=== PATIENT | female | born 1965 | race Caucasian/White ===

== ENCOUNTER 2018-03-27 15:31 | Outpatient (REF) | payer MEDICARE, MEDICAID, SELFPAY ==
[2018-03-27 22:55] LABS: ALT 46 U/L (12-78); AST 24 U/L (15-37); Albumin 4.3 g/dL (3.4-5.0); Alkaline Phosphatase 103 U/L (46-116); Anion Gap 11.2 mmol/L (3-11); BUN 32 mg/dL (7-18); Bilirubin, Total 0.3 mg/dL (0.2-1.0); CO2 24.8 mmol/L (21.0-32.0); CREATININE 1.45 mg/dL (0.55-1.02); Calcium 9.9 mg/dL (8.5-10.1); Chloride 105 mmol/L (98-107); Estimated GFR 38.07 (mL/min/1.73m2); Glucose 109 mg/dL (70-100); Potassium 5.4 mmol/L (3.5-5.1); Sodium 141 mmol/L (136-145); Total Protein 7.8 g/dL (6.4-8.2); Vitamin B12 334 pg/mL (193-986)
== END 2018-03-27 15:32 ==
LOC: NCHCN 15:31
PROVIDERS: Nurse Practitioner Family; PCP Internal Medicine; Visit Provider Internal Medicine
DX: F41.1 Generalized anxiety disorder (principal); E66.9 Obesity, unspecified
CPT/HCPCS: 80053; 85027; 82607; 84443

== ENCOUNTER 2018-08-30 13:24 | Outpatient (REF) | payer MEDICARE, MEDICAID, SELFPAY ==
[2018-08-30 20:58] LABS: Anion Gap 12.8 mmol/L (3-11); BUN 32 mg/dL (7-18); CO2 23.2 mmol/L (21.0-32.0); CREATININE 1.85 mg/dL (0.55-1.02); Calcium 9.7 mg/dL (8.5-10.1); Chloride 102 mmol/L (98-107); Estimated GFR 28.74 (mL/min/1.73m2); Glucose 140 mg/dL (70-100); Potassium 4.9 mmol/L (3.5-5.1); Sodium 138 mmol/L (136-145)
[2018-08-30 21:43] LABS: Hemoglobin A1C 6.5 % (4.5-6.2)
== END 2018-08-30 13:25 ==
LOC: NCHCN 13:24
PROVIDERS: PCP Internal Medicine; Visit Provider Family Medicine
DX: R73.09 Other abnormal glucose (principal); I10 Essential (primary) hypertension; N18.9 Chronic kidney disease, unspecified
CPT/HCPCS: 80048; 83036

== ENCOUNTER 2018-10-18 21:08 | Outpatient (REF) | payer MEDICARE, MEDICAID, SELFPAY ==
[2018-10-18 22:41] LABS: Albumin 4.2 g/dL (3.4-5.0); Anion Gap 13.4 mmol/L (3-11); BUN 14 mg/dL (7-18); CO2 23.6 mmol/L (21.0-32.0); CREATININE 1.32 mg/dL (0.55-1.02); Calcium 9.4 mg/dL (8.5-10.1); Chloride 105 mmol/L (98-107); Estimated GFR 42.43 (mL/min/1.73m2); Glucose 111 mg/dL (70-100); Potassium 4.2 mmol/L (3.5-5.1); Sodium 142 mmol/L (136-145)
== END 2018-10-18 21:09 ==
LOC: LBN 21:08
PROVIDERS: PCP Internal Medicine; Visit Provider Internal Medicine Nephrology
DX: I10 Essential (primary) hypertension (principal); N18.4 Chronic kidney disease, stage 4 (severe)
CPT/HCPCS: 80069

== ENCOUNTER 2019-03-18 11:58 | Outpatient (REF) | payer MEDICARE, MEDICAID, SELFPAY ==
[2019-03-18 21:13] LABS: Calculated LDL 89 mg/dL; Cholesterol 157 mg/dL (<200); HDL Cholesterol 26 mg/dL (40-60); Triglyceride 213 mg/dL (<150)
== END 2019-03-18 11:59 ==
LOC: NCHCN 11:58
PROVIDERS: PCP Internal Medicine; Visit Provider Family Medicine
DX: E78.5 Hyperlipidemia, unspecified (principal)
CPT/HCPCS: 80061

== ENCOUNTER 2019-10-14 14:48 | Outpatient (REF) | payer MEDICARE, MEDICAID, SELFPAY ==
[2019-10-14 20:24] LABS: ALT 62 U/L (14-59); AST 39 U/L (15-37); Albumin 3.9 g/dL (3.4-5.0); Alkaline Phosphatase 101 U/L (46-116); Anion Gap 11.5 mmol/L (3-11); BUN 25 mg/dL (7-18); Bilirubin, Total 0.3 mg/dL (0.2-1.0); CO2 23.5 mmol/L (21.0-32.0); Calcium 9.7 mg/dL (8.5-10.1); Chloride 106 mmol/L (98-107); Estimated GFR 31.56 (mL/min/1.73m2); Glucose 139 mg/dL (74-106); Potassium 4.8 mmol/L (3.5-5.1); Sodium 141 mmol/L (136-145)
[2019-10-14 20:25] LABS: Abs Immature Grans 0.16 k/cumm (0.0-0.09); Absolute Basophil Count 0.02 k/cumm (0.0-0.2); Absolute Eosinophil Count 0.19 k/cumm (0.0-0.7); Absolute Lymphocyte Count 1.76 k/cumm (1.2-3.4); Absolute Monocyte Count 0.87 k/cumm (0.11-0.7); Absolute Neutrophil Count 9.37 k/cumm (1.2-6.7); Basophils % 0.2; Eosinophils % 1.5; HCT 39.8 % (36.0-46.0); HGB 13.1 g/dL (12.0-15.5); Immature Grans % 1.3 %; Lymphocytes % 14.2; Mean Corp. HGB Concentration 32.9 g/dL (32.0-36.0); Mean Corpuscular Hemoglobin 33.2 pg (27.0-33.0); Mean Platelet Volume 9.8 fL (8.0-11.0); Neutrophils % 75.8; Platelet Count 397 x1000/uL (130-400); RBC 3.94 m/cumm (4.00-5.20); RBC Distribution Width 13.4 % (11.7-14.6); White Blood Cell Count 12.36 k/cumm (4.4-10.8)
== END 2019-10-14 14:49 ==
LOC: NCHCN 14:48
PROVIDERS: PCP Internal Medicine; Visit Provider Family Medicine
DX: R73.03 Prediabetes (principal); I10 Essential (primary) hypertension; Z83.2 Family history of diseases of the blood and blood-forming organs and certain disorders involving the immune mechanism
CPT/HCPCS: 80053; 85025

== ENCOUNTER 2020-03-01 12:12 | Outpatient (REF) | payer MEDICARE, MEDICAID, SELFPAY ==
[2020-03-01 21:16] LABS: HCT 43.2 % (36.0-46.0); HGB 14.1 g/dL (11.2-15.7); MCH 32.9 pg (27.0-33.0); MCHC 32.6 % (32.0-36.0); MCV 100.9 fL (80-95); MPV 11.3 fL (8.0-11.0); Platelet Count 270 10^3/uL (130-400); RBC 4.28 10^6/uL (3.93-5.22); RDW 13.2 % (11.7-14.6); RDW-SD 49.1 fL; WBC 13.99 10^3/uL (4.4-10.8)
[2020-03-01 21:26] LABS: Albumin 4.3 g/dL (3.4-5.0); Anion Gap 16.8 mmol/L (3-11); BUN 24 mg/dL (7-18); CO2 19.2 mmol/L (21.0-32.0); CREATININE 1.73 mg/dL (0.55-1.02); Calcium 9.6 mg/dL (8.5-10.1); Chloride 103 mmol/L (98-107); Estimated GFR 30.81 (mL/min/1.73m2); Glucose 127 mg/dL (74-106); PHOSPHORUS 2.9 mg/dL (2.6-4.7); Potassium 4.3 mmol/L (3.5-5.1); Sodium 139 mmol/L (136-145)
== END 2020-03-01 12:13 ==
LOC: LBN 12:12
PROVIDERS: PCP Internal Medicine; Visit Provider Internal Medicine Nephrology
DX: N18.30 Chronic kidney disease, stage 3 unspecified (principal)
CPT/HCPCS: 80069; 85027

== ENCOUNTER 2020-03-12 12:40 | Outpatient (REF) | payer MEDICARE, MEDICAID, SELFPAY ==
[2020-03-12 21:59] LABS: ALT 46 U/L (14-59); AST 30 U/L (15-37); Albumin 4.1 g/dL (3.4-5.0); Alkaline Phosphatase 106 U/L (46-116); Anion Gap 11.4 mmol/L (3-11); BUN 34 mg/dL (7-18); Bilirubin, Total 0.4 mg/dL (0.2-1.0); CO2 20.6 mmol/L (21.0-32.0); Chloride 105 mmol/L (98-107); Estimated GFR 29.43 (mL/min/1.73m2); Glucose 130 mg/dL (74-106); Potassium 4.4 mmol/L (3.5-5.1); Sodium 137 mmol/L (136-145); Total Protein 7.4 g/dL (6.4-8.2)
[2020-03-12 22:08] LABS: Calcium 9.5 mg/dL (8.5-10.1)
== END 2020-03-12 12:41 ==
LOC: LBN 12:40
PROVIDERS: PCP Internal Medicine; Visit Provider Internal Medicine Nephrology
DX: N18.30 Chronic kidney disease, stage 3 unspecified (principal)
CPT/HCPCS: 80053; 80069

== ENCOUNTER 2020-07-13 13:32 | Outpatient (REF) | payer MEDICARE, MEDICAID, SELFPAY ==
[2020-07-13 22:02] LABS: HGB 14.7 g/dL (11.2-15.7); MCH 32.4 pg (27.0-33.0); MCHC 32.7 % (32.0-36.0); MCV 99.1 fL (80-95); MPV 10.4 fL (8.0-11.0); Platelet Count 355 10^3/uL (130-400); RBC 4.54 10^6/uL (3.93-5.22); RDW 13.4 % (11.7-14.6); RDW-SD 49.4 fL; WBC 11.87 10^3/uL (4.4-10.8)
[2020-07-13 22:11] LABS: Anion Gap 12.2 mmol/L (3-11); BUN 20 mg/dL (7-18); CO2 26.8 mmol/L (21.0-32.0); CREATININE 1.1 mg/dL (0.55-1.02); Calcium 9.6 mg/dL (8.5-10.1); Chloride 103 mmol/L (98-107); Estimated GFR 51.96 (mL/min/1.73m2); Glucose 121 mg/dL (74-106); PHOSPHORUS 3.6 mg/dL (2.6-4.7); Potassium 4.5 mmol/L (3.5-5.1); Sodium 142 mmol/L (136-145)
[2020-07-13 22:29] LABS: Hemoglobin A1C 7.3 % (<5.7)
[2020-07-14 09:04] LABS: TSH 1.07 uIU/mL (0.36-3.74)
== END 2020-07-13 13:33 | disposition home or self-care (01) ==
LOC: NCHCN 13:32
PROVIDERS: Family Medicine; Internal Medicine Nephrology; PCP Family Medicine; Visit Provider Family Medicine
DX: R73.03 Prediabetes (principal); E03.9 Hypothyroidism, unspecified; N18.30 Chronic kidney disease, stage 3 unspecified
CPT/HCPCS: 80069; 85027; 83036; 84443

== ENCOUNTER 2020-10-15 16:18 | Outpatient (REF) | payer MEDICARE, MEDICAID, SELFPAY ==
[2020-10-15 22:06] LABS: COMMENT (LAB VIEW ONLY) 125.19 mg/dL; Microalb ug/mg Crea 40.7 ug/mg Cr
== END 2020-10-15 16:19 | disposition home or self-care (01) ==
LOC: NCHCN 16:18
PROVIDERS: PCP Family Medicine; Visit Provider Family Medicine
DX: R73.03 Prediabetes (principal)
CPT/HCPCS: 82043; 82570

== ENCOUNTER 2020-11-23 21:19 | Outpatient (REF) | payer MEDICARE, MEDICAID, SELFPAY ==
[2020-11-23 22:32] LABS: Absolute Basophil Count 0.08 10^3/uL (0.0-0.2); Absolute Eosinophil Count 0.15 10^3/uL (0.0-0.7); Absolute Lymphocyte Count 1.72 10^3/uL (1.2-3.4); Absolute Monocyte Count 0.76 10^3/uL (0.1-0.8); Basophils % 0.7; Eosinophils % 1.2; HCT 44.2 % (36.0-46.0); HGB 14.6 g/dL (11.2-15.7); Immature Grans % 0.8; Lymphocytes % 14.2; MCH 32.6 pg (27.0-33.0); MCV 98.7 fL (80-95); MPV 10.5 fL (8.0-11.0); Monocytes % 6.3; Neutrophils % 76.8; Nucleated RBC 0 %; Platelet Count 333 10^3/uL (130-400); RBC 4.48 10^6/uL (3.93-5.22); RDW 12.8 % (11.7-14.6); RDW-SD 46.9 fL; WBC 12.11 10^3/uL (4.4-10.8)
[2020-11-23 22:43] LABS: ALT 58 U/L (14-59); AST 29 U/L (15-37); Albumin 4.1 g/dL (3.4-5.0); Alkaline Phosphatase 104 U/L (46-116); Anion Gap 12.6 mmol/L (3-11); BUN 14 mg/dL (7-18); Bilirubin, Total 0.4 mg/dL (0.2-1.0); C-Reactive Protein 0.91 mg/dL (0.0-0.3); CO2 26.4 mmol/L (21.0-32.0); CREATININE 1.1 mg/dL (0.55-1.02); Calcium 9.4 mg/dL (8.5-10.1); Chloride 102 mmol/L (98-107); Estimated GFR 51.96 (mL/min/1.73m2); Glucose 136 mg/dL (74-106); Potassium 4.4 mmol/L (3.5-5.1); Sodium 141 mmol/L (136-145); Total Protein 7.2 g/dL (6.4-8.2)
== END 2020-11-23 21:20 | disposition home or self-care (01) ==
LOC: NCHCN 21:19
PROVIDERS: PCP Family Medicine; Visit Provider Family Medicine
DX: K92.1 Melena (principal); R10.9 Unspecified abdominal pain; R11.10 Vomiting, unspecified
CPT/HCPCS: 80053; 85025; 86140

== ENCOUNTER 2021-08-17 21:05 | Outpatient (REF) | payer MEDICARE, MEDICAID, SELFPAY | END 2021-08-17 21:06 | disposition home or self-care (01) | LOC: NCHCN 21:05 | PROVIDERS: PCP Family Medicine; Visit Provider Family Medicine | DX: R39.89 Other symptoms and signs involving the genitourinary system (principal) | CPT/HCPCS: 87077; 87086; 87186 ==

== ENCOUNTER 2021-10-18 15:06 | Outpatient (REF) | payer MEDICARE, MEDICAID, SELFPAY ==
[2021-10-18 17:08] LABS: COMMENT (LAB VIEW ONLY) 86.28 mg/dL; Microalb ug/mg Crea 25.2 ug/mg Cr
== END 2021-10-18 15:07 | disposition home or self-care (01) ==
LOC: NCHCN 15:06
PROVIDERS: PCP Family Medicine; Visit Provider Family Medicine
DX: E11.9 Type 2 diabetes mellitus without complications (principal)
CPT/HCPCS: 82043; 82570

== ENCOUNTER 2022-04-05 15:57 | Outpatient (REF) | payer MEDICARE, MEDICAID, SELFPAY ==
[2022-04-05 14:35] LABS: Bilirubin Negative (Negative); Blood Moderate (Negative); Clarity Clear (Clear); Glucose Negative (Negative); Ketones Negative (Negative); Leukocyte Esterase Trace (Negative); Nitrite Negative (Negative); Specific Gravity 1.015 (1.005-1.025); Urobilinogen 0.2 EU/dL (Up TO 0.2)
[2022-04-05 14:41] LABS: Bacteria Rare HPF (Negative); C & S Indicated? No/Sq. Contamination; Casts Negative LPF (Negative); Crystals Negative HPF (Negative); Epithelial Cells Moderate HPF (Negative); Mucus Negative (Negative); WBC 0-2 HPF (0-5)
[2022-04-05 14:45] LABS: Anion Gap 10.8 mmol/L (3-11); BUN 25 mg/dL (7-18); CO2 26.2 mmol/L (21.0-32.0); CREATININE 1.9 mg/dL (0.55-1.02); Calcium 10.3 mg/dL (8.5-10.1); Chloride 101 mmol/L (98-107); Glucose 121 mg/dL (74-106); Potassium 4.4 mmol/L (3.5-5.1); Sodium 138 mmol/L (136-145)
--- OUTSIDE RECORDS SUMMARY | 2022-04-05 16:01 | XMS_ITS | CCD ---
:1965 Author Care Team Providers Name Role Phone SWETHA CLEMONS Attending Physician Unavailable Vital Signs Unknown or Not Available. Allergies Allergy Code Allergy Type Reaction Status DOXYCYCLINE 3640 Drug allergy Active ANTIBIOTICS {Clinical monitoring unavailable} 0 Drug all ergy UNK Active TETRACYCLINE 77357 Drug allergy Active ERYTHROMYCIN 4053 Drug allergy Active IODINE-CONTAINING 0 Drug allergy Active AMOXICILLIN 723 Drug allergy Active NITROFURANTOIN 7454 Drug allergy Active Procedures Unknown or Not Available. History of Immunizations Unknown or Not Available. Problems Problem Code Start Date Resolved Date Status UTI 41370041 Active KATERIN - acute kidney injury 03645188 Ac tive Closed fracture of left [id number] Active fibula Closed fracture of right 50270505367187825 Active talus Syncope 357115785 Active History of drug dependency 856740619 03/24/2022 R esolved History of alcohol abuse 021764286 03/24/2022 Res olved Endometriosis 644985815 03/24/2022 Resolved Obesity 045141213 03/24/2022 Resolved Tobacco dependence 11104563 03/24/2022 Resolved History of bulimia nervosa 453279087474978 03/24/2022 Resolved PTSD 51313335 03/24/2022 Resolved Depression 74450613 03/24/2022 Resolved Anxiety 71840873 03/24/2022 Resolved Results Unknown or Not Available. Active Medications Medication Code Dose Units Frequency Route Modification Start Date/Time Cephalexin 414527 500 MILLIGRAMS THREE TIMES ORAL 2021 500MG Oral A DAY 09:36 Capsule Prescription Detail TAKE 500 MILLIGRAMS ORAL THR EE TIMES A DAY cloNIDine HCl 0.1MG Oral 937418 0.4 MILLIGRAMS BEDTIME ORAL 03/27/2022 09:36 Tablet Prescription Detail TAKE 0.4 MILLIGRAMS ORAL BED TIME cloNIDine HCl 0.1MG Oral 873409 0.1 MILLIGRAMS DAILY ORAL 03/27/2022 09:36 Tablet Prescription Detail TAKE 0.1 MILLIGRAMS ORAL EVER LY Cyclobenzaprine 10MG 865758 10 MILLIGRAMS NEEDED AT ORAL 03/27/2022 09:36 Oral Tablet BEDTIME Prescription Detail TAKE 10 MILLIGRAMS ORAL N EEDED AT BEDTIME HYDROmorphone HCl 2MG 072934 2 MILLIGRAMS NEEDED FOUR ORAL 03/27/2022 09:36 Oral Tablet TIMES A DAY Prescription Detail TAKE 2 MILLIGRAMS ORAL NE EDED FOUR TIMES A DAY Prochlorperazine 5MG 63310060741 5 MILLIGRAMS NEEDED ORAL 03/27/2022 Oral Tablet 09:36 Prescription Detail TAKE 5 MILLIGRAMS ORAL NE EDED traZODone hydrochloride 433350 150 MILLIGRAMS BEDTIME ORAL 03/27/2022 09:36 100MG Oral Tablet Prescription Detail TAKE 150 MILLIGRAMS ORAL BED TIME busPIRone HCl 15MG 957216 15 MILLIGRAMS TWICE A DAY ORAL 03/27/2022 09:35 Oral Tablet Prescription Detail TAKE 15 MILLIGRAMS ORAL TWIC E A DAY LORazepam 2MG Oral 407761 2 MILLIGRAMS NEEDED EVERY ORAL 03/27/2022 09:35 Tablet 6 HOURS Prescription Detail TAKE 2 MILLIGRAMS ORAL NE EDED EVERY 6 HOURS Rosuvastatin 10MG Oral 059084 10 MILLIGRAMS BEDTIME ORAL 03/27/2022 09:35 Tablet Prescription Detail TAKE 10 MILLIGRAMS ORAL BEDT ABHISHEK Rybelsus 3MG Oral Tablet 8255576 3 MILLIGRAMS DAILY ORAL 03/27/2022 09:35 Prescription Detail TAKE 3 MILLIGRAMS ORAL DAILY Medications Administered During Visit Unknown or Not Available. Encounters Unknown or Not Available. Social History Smoking Status Code Start Date End Date Current every day smoker [id number] 1980 Patient Decision Aids Unknown or Not Available. Discharge Instructions You were admitted to [facility] on 03/24/2022 02:15 You were discharged from [facility] on 03/27/2022 02:16 Should you have any questions prior to d ischarge, please contact a member of your healthcare team. If you have left the ho spital and have any questions, please contact your primary care physician. Chief Complaint and Reason For Visit Unknown or Not Available. Function Status Unknown or Not Available. Plan of Care Unknown or Not Available. Referral/Transition of Care Unknown or Not Available.
--- OUTSIDE RECORDS SUMMARY | 2022-04-05 16:01 | XMS_ITS | CCD ---
:1965 Author Care Team Providers Name Role Phone SWETHA CLEMONS Attending Physician Unavailable JOSE LUNA Er Physician 1 Unavailable CHUY RAJPUT (Secondary) Physician UnavailPAO Richey Registered Nurse Unavailable BOO Kim Registered Nurse Unavailable Vital Signs Vital Sign Value Unit Date/Time Recent/Initial? BMI (Body Mass Index) 40.72 kg/m^2 03/24/2022 12:40 In itial VS Weight Measured 260 lbs 03/24/2022 12:40 Initial VS Height 67 in 03/24/2022 12:40 Initial VS BSA (Body Surface Area) 2.36 m^2 03/24/2022 12:40 Initial VS BP Systolic 140 mmHg 03/24/2022 12:40 Initial VS BP Diastolic 74 mmHg 03/24/2022 12:40 Initial VS Respiratory Rate 23 bpm 03/24/2022 12:40 Initial VS Heart Rate 89 bpm 03/24/2022 12:40 Initial VS O2 % BldC Oximetry 97 % 03/24/2022 12:40 Initi al VS Body Temperature 37.3 degrees 03/24/2022 12:40 Initial VS BP Systolic 170 mmHg 03/27/2022 07:30 Most Recent VS BP Diastolic 107 mmHg 03/27/2022 07:30 Most Recent VS Respiratory Rate 18 bpm 03/27/2022 07:30 Most Re cent VS Heart Rate 87 bpm 03/27/2022 07:30 Most Recent VS O2 % BldC Oximetry 98 % 03/27/2022 07:30 Most Recent VS Body Temperature 36.5 degrees 03/27/2022 07:30 Most Re cent VS Allergies Allergy Code Allergy Type Reaction Status DOXYCYCLINE 3640 Drug allergy Active ANTIBIOTICS {Clinical monitoring unavailable} 0 Drug all ergy UNK Active TETRACYCLINE 37954 Drug allergy Active ERYTHROMYCIN 4053 Drug allergy Active IODINE-CONTAINING 0 Drug allergy Active AMOXICILLIN 723 Drug allergy Active NITROFURANTOIN 7454 Drug allergy Active Procedures Unknown or Not Available. History of Immunizations Unknown or Not Available. Problems Problem Code Start Date Resolved Date Status UTI 80166435 Active KATERIN - acute kidney injury 48462866 Ac tive Closed fracture of left 33169211391213328 Active fibula Closed fracture of right 73776338691977997 Active talus Syncope 373570725 Active History of drug dependency 427468708 03/24/2022 R esolved History of alcohol abuse 704573330 03/24/2022 Res olved Endometriosis 214881784 03/24/2022 Resolved Obesity 379299867 03/24/2022 Resolved Tobacco dependence 29403357 03/24/2022 Resolved History of bulimia nervosa 159181362900738 03/24/2022 Resolved PTSD 70188658 03/24/2022 Resolved Depression 81167803 03/24/2022 Resolved Anxiety 43824342 03/24/2022 Resolved Results BASIC METABOLIC PANEL (BMP) - Collect Da te/Time: 03/27/2022 06:30 Test Name Code Test Result Test Units Test Ref Range GLUCOSE 2345-7 103 mg/dL L=70 H=116 BUN 3094-0 17 mg/dL L=6 H=25 CREATININE 2160-0 1.78 mg/dL L=0.51 H=0.95 SODIUM SERUM 2951-2 139 mmol/L L=136 H=145 POTASSIUM SERUM 2823-3 3.8 mmol/L L=3.4 H=5.2 CHLORIDE SERUM 2075-0 102 mmol/L L=96 H=110 CARBON DIOXIDE (CO2) 2028-9 25 mmol/L L=22 H= 34 ANION GAP 79750-6 12.1 mmol/L CALCIUM SERUM 49022-0 8.9 mg/dL L=8.2 H=10.2 AGE 57 years eGFR (non-Afr.Amer.) 50404-6 30 mL/min eGFR (Afr-Taiwanese) 94532-8 36 mL/min BASIC METABOLIC PANEL (BMP) - Collect Da te/Time: 03/26/2022 06:25 Test Name Code Test Result Test Units Test Ref Range GLUCOSE 2345-7 100 mg/dL L=70 H=116 BUN 3094-0 19 mg/dL L=6 H=25 CREATININE 2160-0 2.07 mg/dL L=0.51 H=0.95 SODIUM SERUM 2951-2 141 mmol/L L=136 H=145 POTASSIUM SERUM 2823-3 3.7 mmol/L L=3.4 H=5.2 CHLORIDE SERUM 2075-0 106 mmol/L L=96 H=110 CARBON DIOXIDE (CO2) 2028-9 26 mmol/L L=22 H= 34 ANION GAP 99395-1 8.7 mmol/L CALCIUM SERUM 16559-3 8.6 mg/dL L=8.2 H=10.2 AGE 57 years eGFR (non-Afr.Amer.) 23430-5 25 mL/min eGFR (Afr-[place]ese) 46164-1 30 mL/min BASIC METABOLIC PANEL (BMP) - Collect Da te/Time: 03/25/2022 06:10 Test Name Code Test Result Test Units Test Ref Range GLUCOSE 2345-7 96 mg/dL L=70 H=116 BUN 3094-0 24 mg/dL L=6 H=25 CREATININE 2160-0 2.14 mg/dL L=0.51 H=0.95 SODIUM SERUM 2951-2 140 mmol/L L=136 H=145 POTASSIUM SERUM 2823-3 3.6 mmol/L L=3.4 H=5.2 CHLORIDE SERUM 2075-0 103 mmol/L L=96 H=110 CARBON DIOXIDE (CO2) 8-9 26 mmol/L L=22 H= 34 ANION GAP 02855-3 10.6 mmol/L CALCIUM SERUM 73143-2 8.6 mg/dL L=8.2 H=10.2 AGE 57 years eGFR (non-Afr.Amer.) 32828-1 24 mL/min eGFR (Afr-[place]ese) 55792-9 29 mL/min COMPREHENSIVE METABOLIC PANEL (CMP) - Co llect Date/Time: 03/24/2022 13:40 Test Name Code Test Result Test Units Test Ref Range GLUCOSE 2345-7 109 mg/dL L=70 H=116 BUN 3094-0 31 mg/dL L=6 H=25 CREATININE 2160-0 2.63 mg/dL L=0.51 H=0.95 SODIUM SERUM 2951-2 138 mmol/L L=136 H=145 POTASSIUM SERUM 2823-3 3.4 mmol/L L=3.4 H=5.2 CHLORIDE SERUM 2075-0 98 mmol/L L=96 H=110 CARBON DIOXIDE (CO2) 2028-9 27 mmol/L L=22 H= 34 ANION GAP 77016-1 12.6 mmol/L CALCIUM SERUM 50615-9 9.1 mg/dL L=8.2 H=10.2 BILIRUBIN TOTAL 1975-2 0.4 mg/dL L=0.0 H=1.3 ALK. PHOS. 6768-6 125 U/L L=46 H=116 SGOT (AST) 1920-8 13 U/L L=15 H=37 SGPT (ALT) 1742-6 27 U/L L=12 H=78 TOTAL PROTEIN 2885-2 8.3 gm/dL L=6.0 H=8.0 ALBUMIN 1751-7 3.2 gm/dL L=3.4 H=5.0 AGE 57 years eGFR (non-Afr.Amer.) 30128-3 19 mL/min eGFR (Afr-[place]ese) 49642-0 23 mL/min LIPASE* NEW - Collect Date/Time: 022 13:40 Test Name Code Test Result Test Units Test Ref Range LIPASE. 67 U/L L=16 H=77 CBC W/ DIFFERENTIAL* - Collect Date/Time : 03/26/2022 06:25 Test Name Code Test Result Test Units Test Ref Range WBC 6690-2 8.88 th/cmm L=5.00 H=10.00 NEUT % 67.3 % L=40.0 H=80.0 LYMPH % 20.0 % L=10.0 H=50.0 MONO % 46093-1 7.5 % L=2.0 H=12.0 EOS % 3.4 % L=0.0 H=8.0 BASO % 0.9 % L=0.0 H=3.0 IG % 2514-8 0.9 % L=0.0 H=1.1 NRBC % 84753-6 0.0 % L=0.0 H=0.0 NEUT abs count 751-8 6.0 th/cmm L=1.6 H=8.4 LYMPH abs count 731-0 1.8 th/cmm L=1.5 H=4.0 MONO abs count 742-7 0.7 th/cmm L=0.2 H=1.0 EOS abs count 711-2 0.3 th/cmm L=0.0 H=0.5 BASO abs count 704-7 0.1 th/cmm L=0.0 H=0.2 IG abs count 47951-3 0.1 th/cmm L=0.0 H=0.1 NRBC abs count 36101-6 0.0 mil/cmm L=0.0 H=0.0 RBC 789-8 3.56 mil/cmm L=3.90 H=5.40 HEMOGLOBIN 718-7 10.8 gm/dL L=12.0 H=16.0 HEMATOCRIT 4544-3 34 % L=37 H=47 MCV 787-2 96 fL L=82 H=92 MCH 785-6 30.3 pg L=27.0 H=31.0 MCHC 786-4 31.8 % L=32.0 H=36.0 RDW-SD 788-0 47.9 fL L=39.0 H=49.0 PLATELET COUNT 777-3 373 th/cmm L=150 H=450 CBC W/ DIFFERENTIAL* - Collect Date/Time : 03/25/2022 06:10 Test Name Code Test Result Test Units Test Ref Range WBC 6690-2 10.20 th/cmm L=5.00 H=10.00 NEUT % 67.3 % L=40.0 H=80.0 LYMPH % 19.2 % L=10.0 H=50.0 MONO % 72716-9 9.8 % L=2.0 H=12.0 EOS % 2.1 % L=0.0 H=8.0 BASO % 0.7 % L=0.0 H=3.0 IG % 2514-8 0.9 % L=0.0 H=1.1 NRBC % 17933-4 0.0 % L=0.0 H=0.0 NEUT abs count 751-8 6.9 th/cmm L=1.6 H=8.4 LYMPH abs count 731-0 2.0 th/cmm L=1.5 H=4.0 MONO abs count 742-7 1.0 th/cmm L=0.2 H=1.0 EOS abs count 711-2 0.2 th/cmm L=0.0 H=0.5 BASO abs count 704-7 0.1 th/cmm L=0.0 H=0.2 IG abs count 40693-9 0.1 th/cmm L=0.0 H=0.1 NRBC abs count 43154-6 0.0 mil/cmm L=0.0 H=0.0 RBC 789-8 3.42 mil/cmm L=3.90 H=5.40 HEMOGLOBIN 718-7 10.4 gm/dL L=12.0 H=16.0 HEMATOCRIT 4544-3 33 % L=37 H=47 MCV 787-2 95 fL L=82 H=92 MCH 785-6 30.4 pg L=27.0 H=31.0 MCHC 786-4 32.0 % L=32.0 H=36.0 RDW-SD 788-0 46.7 fL L=39.0 H=49.0 PLATELET COUNT 777-3 364 th/cmm L=150 H=450 CBC W/ DIFFERENTIAL* - Collect Date/Time : 03/24/2022 13:40 Test Name Code Test Result Test Units Test Ref Range WBC 6690-2 15.45 th/cmm L=5.00 H=10.00 NEUT % 76.2 % L=40.0 H=80.0 LYMPH % 12.6 % L=10.0 H=50.0 MONO % 97452-8 9.4 % L=2.0 H=12.0 EOS % 0.5 % L=0.0 H=8.0 BASO % 0.5 % L=0.0 H=3.0 IG % 2514-8 0.8 % L=0.0 H=1.1 NRBC % 54787-1 0.0 % L=0.0 H=0.0 NEUT abs count 751-8 11.8 th/cmm L=1.6 H=8.4 LYMPH abs count 731-0 1.9 th/cmm L=1.5 H=4.0 MONO abs count 742-7 1.5 th/cmm L=0.2 H=1.0 EOS abs count 711-2 0.1 th/cmm L=0.0 H=0.5 BASO abs count 704-7 0.1 th/cmm L=0.0 H=0.2 IG abs count 31096-1 0.1 th/cmm L=0.0 H=0.1 NRBC abs count 96463-3 0.0 mil/cmm L=0.0 H=0.0 RBC 789-8 3.64 mil/cmm L=3.90 H=5.40 HEMOGLOBIN 718-7 11.3 gm/dL L=12.0 H=16.0 HEMATOCRIT 4544-3 34 % L=37 H=47 MCV 787-2 93 fL L=82 H=92 MCH 785-6 31.0 pg L=27.0 H=31.0 MCHC 786-4 33.3 % L=32.0 H=36.0 RDW-SD 788-0 45.2 fL L=39.0 H=49.0 PLATELET COUNT 777-3 407 th/cmm L=150 H=450 KHALIDA COVID FLU RSV GENEXPERT - Collect Date/Time: 03/24/2022 14:01 Test Name Code Test Result Test Units Test Ref Range COVID 20441-3 NEGATIVE N/A Normal: Negativ e INFLUENZA A DNA 64480-3 NEGATIVE N/A Normal: Nega tive INFLUENZA B DNA 32062-8 NEGATIVE N/A Normal: Nega tive RSV DNA 10675-8 NEGATIVE N/A Normal: Negativ e CULT URINE CULTURE* - Collect Date/Time: 03/24/2022 13:18 Test Name Code Test Result Test Units Test Ref Range COLLECTION MODE: 47572-8 VOID N/A URINALYSIS WITH REFLEX CULT IF POSITIVE* - Collect Date/Time: 03/24/2022 13:18 Test Name Code Test Result Test Units Test Ref Range COLLECTION MODE: 44863-3 VOID N/A Color 5778-6 YELLOW N/A yellow Appearance 5767-9 HAZY N/A clear Glucose urine 58550-5 NEGATIVE N/A negative mg/dl Bilirubin 5770-3 NEGATIVE N/A negative Ketones 2514-8 NEGATIVE N/A negative mg/dl Spec gravity 5811-5 1.010 N/A 1.003 - 1.030 pH urine 2756-5 6.0 N/A 5.0 - 7.0 Protein 49929-4 NEGATIVE N/A negative mg/dl Urobilinogen 27037-5 0.2 N/A <or= 1 EU/dl Nitrite. 5802-4 POSITIVE N/A negative Blood 5794-3 TRACE-LY N/A negative Leukocytes. LARGE N/A negative MICROSCOPIC INDICATED N/A WBCs. 73775-0 25-100 N/A 0-5 / hpf RBCs 73287-5 none N/A 0-5 / hpf Epith cells 08315-1 5-10 N/A 0-5 / hpf Cell types squamous N/A Crystals none N/A none Bacteria large N/A none Mucus 8247-9 none N/A none Casts 04492-0 none N/A none /lpf Active Medications Medication Code Dose Units Frequency Route Modification Start Date/Time Cephalexin 149928 500 MILLIGRAMS THREE TIMES ORAL 2021 500MG Oral A DAY 09:36 Capsule Prescription Detail TAKE 500 MILLIGRAMS ORAL THR EE TIMES A DAY cloNIDine HCl 0.1MG Oral 573069 0.4 MILLIGRAMS BEDTIME ORAL 03/27/2022 09:36 Tablet Prescription Detail TAKE 0.4 MILLIGRAMS ORAL BED TIME cloNIDine HCl 0.1MG Oral 242708 0.1 MILLIGRAMS DAILY ORAL 03/27/2022 09:36 Tablet Prescription Detail TAKE 0.1 MILLIGRAMS ORAL EVER LY Cyclobenzaprine 10MG 970698 10 MILLIGRAMS NEEDED AT ORAL 03/27/2022 09:36 Oral Tablet BEDTIME Prescription Detail TAKE 10 MILLIGRAMS ORAL N EEDED AT BEDTIME HYDROmorphone HCl 2MG 007205 2 MILLIGRAMS NEEDED FOUR ORAL 03/27/2022 09:36 Oral Tablet TIMES A DAY Prescription Detail TAKE 2 MILLIGRAMS ORAL NE EDED FOUR TIMES A DAY Prochlorperazine 5MG 30484049847 5 MILLIGRAMS NEEDED ORAL 03/27/2022 Oral Tablet 09:36 Prescription Detail TAKE 5 MILLIGRAMS ORAL NE EDED traZODone hydrochloride 371821 150 MILLIGRAMS BEDTIME ORAL 03/27/2022 09:36 100MG Oral Tablet Prescription Detail TAKE 150 MILLIGRAMS ORAL BED TIME busPIRone HCl 15MG 662141 15 MILLIGRAMS TWICE A DAY ORAL 03/27/2022 09:35 Oral Tablet Prescription Detail TAKE 15 MILLIGRAMS ORAL TWIC E A DAY LORazepam 2MG Oral 320016 2 MILLIGRAMS NEEDED EVERY ORAL 03/27/2022 09:35 Tablet 6 HOURS Prescription Detail TAKE 2 MILLIGRAMS ORAL NE EDED EVERY 6 HOURS Rosuvastatin 10MG Oral 070067 10 MILLIGRAMS BEDTIME ORAL 03/27/2022 09:35 Tablet Prescription Detail TAKE 10 MILLIGRAMS ORAL BEDT ABHISHEK Rybelsus 3MG Oral Tablet 4131710 3 MILLIGRAMS DAILY ORAL 03/27/2022 09:35 Prescription Detail TAKE 3 MILLIGRAMS ORAL DAILY Medications Administered During Visit Medication Dose Units Frequency Route Date/Time of L ast Dose ACETAMINOPHEN INJ IVPB: 1000 MG X1 IVPB 1 05/25/2021 13:49 1000MG/100ML ONDANSETRON INJ SDV: 4 MG X1 IVP 05/2021 13:49 4MG/2ML LORazepam INJ SYRINGE: 1 MG X1 IVP 14:01 2MG/ML SODIUM CHLORIDE 0.9% 1000 ML X1 IV 05/2021 15:10 1000ML CefTRIAXone IVPB: 1 GM X1 IVPB 15:10 1GM/50ML HYDROmorphone TABLET: 2MG 2 MG X1 PO 03/24/2022 15:39 NICOTINE TRANSDERM PATCH: 21 MG X1 TRANSDERMA L 03/24/2022 16:33 21MG CefTRIAXone IVPB: 1 GM Q24H IVPB 14:45 1GM/50ML PROCHLORPERAZINE TABLET: 5 MG PRN PO 03/27/2022 08:39 5MG CloNIDine TABLET: 0.1MG 0.4 MG BEDTIME PO 1 05/27/2021 20:26 ATORVASTATIN TABLET: 10MG 10 MG BEDTIME PO 03/26/2022 20:26 CYCLOBENZAPRINE TABLET: 10 MG PRN BEDTIME PO 03/25/2022 20:30 10MG BusPIRone TABLET : 15MG 15 MG BID PO 1 05/28/2021 08:39 CloNIDine TABLET: 0.1MG 0.1 MG DAILY PO 1 05/28/2021 08:39 TraZODone TABLET: 50MG 150 MG BEDTIME PO 20:51 LORazepam TABLET: 2MG 2 MG PRN Q6H PO 08/2021 08:39 ACETAMINOPHEN INJ IVPB: 400 MG PRN Q6H IVPB 1 05/27/2021 23:57 1000MG/100ML ONDANSETRON TABLET ORAL 4 MG PRN Q4H PO 1 05/27/2021 12:31 DISINTEGRAT: 4MG SODIUM CHLORIDE 0.9% 100 ML CONT IV 07/2021 22:42 1000ML ENOXAPARIN INJ SYRINGE: 30 MG Q24H SUBQ 1 05/27/2021 16:59 30MG/0.3ML SODIUM CHLORIDE 0.9% 2 ML Q8H IVP 08/2021 06:48 FLUSH 10ML SYRINGE HYDROmorphone TABLET: 2MG 2 MG PRN Q3H PO 03/27/2022 12:00 NICOTINE TRANSDERM PATCH: 21 MG DAILY TRANSDERMA L 03/27/2022 08:37 21MG NYSTATIN TOP POWDER 1 MARINA PRN TID TOP 03/27 08:41 [id number] UNITS/GM PATCH REMOVAL REMINDER 1 EA BEDTIME TRANSDERMAL 1 05/27/2021 20:31 TraZODone TABLET: 50MG 150 MG BEDTIME PO 20:25 NICOTINE INHALER 1 CARTRIDGE PRN Q2H INH 03/27/20 08:41 CARTRIDGE: 10MG CEPHALEXIN CAPSULE: 500MG 500 MG TID PO 03/27/2022 10:47 Encounters Encounter Diagnosis Diagnosis Code Start Date Acute kidney failure, unspecified N179 2021 Social History Smoking Status Code Start Date End Date Current every day smoker [id number] 1980 Patient Decision Aids Unknown or Not Available. Discharge Instructions You were admitted to [facility] on 03/24/2022 17:23 with a principal diagnosis of Acute Renal Failure You had the following tests done: BASIC METABOLIC PANEL (BMP) BASIC METABOLIC PANEL (BMP) CBC W/ DIFFERENTIAL* BASIC METABOL IC PANEL (BMP) CBC W/ DIFFERENTIAL* [facility] COVID FLU RSV GENEXPERT CBC W/ DIFFERENT IAL* COMPREHENSIVE METABOLIC PANEL (CMP) LIPASE* NEW CULT URINE CULTURE* URINALYS IS WITH REFLEX CULT IF POSITIVE* You were discharged from [facility] on 03/27/2022 12:40 Should you have any questions prior to d ischarge, please contact a member of your healthcare team. If you have left the ho spital and have any questions, please contact your primary care physician. Chief Complaint and Reason For Visit Chief Complaint Date of Onset KATERIN UTI ANKLE FRACTURE 03/27/2022 Function Status Unknown or Not Available. Plan of Care Unknown or Not Available. Referral/Transition of Care Unknown or Not Available.
--- OUTSIDE RECORDS SUMMARY | 2022-04-05 16:01 | XMS_ITS | CCD ---
:1965 Author Care Team Providers Name Role Phone JOSE MANUEL WAN Attending Physician Unavailable JOSE MANUEL WAN Rounding (Secondary) Physician Unavailab le Vital Signs Unknown or Not Available. Allergies Allergy Code Allergy Type Reaction Status DOXYCYCLINE 3640 Drug allergy Active ANTIBIOTICS {Clinical monitoring unavailable} 0 Drug all ergy UNK Active TETRACYCLINE 50188 Drug allergy Active ERYTHROMYCIN 4053 Drug allergy Active IODINE-CONTAINING 0 Drug allergy Active AMOXICILLIN 723 Drug allergy Active NITROFURANTOIN 7454 Drug allergy Active Procedures Unknown or Not Available. History of Immunizations Unknown or Not Available. Problems Problem Code Start Date Resolved Date Status UTI 63943598 Active KATERIN - acute kidney injury 75704662 Ac tive Closed fracture of left fibula 27797648325881331 Active Closed fracture of right talus 36226038803451852 Active Syncope 055970335 Active Results Unknown or Not Available. Active Medications Medication Code Dose Units Frequency Route Modification Start Date/Time Cephalexin 884751 500 MILLIGRAMS THREE TIMES ORAL 2021 500MG Oral A DAY 09:36 Capsule Prescription Detail TAKE 500 MILLIGRAMS ORAL THR EE TIMES A DAY cloNIDine HCl 0.1MG Oral 839331 0.4 MILLIGRAMS BEDTIME ORAL 03/27/2022 09:36 Tablet Prescription Detail TAKE 0.4 MILLIGRAMS ORAL BED TIME cloNIDine HCl 0.1MG Oral 013068 0.1 MILLIGRAMS DAILY ORAL 03/27/2022 09:36 Tablet Prescription Detail TAKE 0.1 MILLIGRAMS ORAL EVER LY Cyclobenzaprine 10MG 278966 10 MILLIGRAMS NEEDED AT ORAL 03/27/2022 09:36 Oral Tablet BEDTIME Prescription Detail TAKE 10 MILLIGRAMS ORAL N EEDED AT BEDTIME HYDROmorphone HCl 2MG 375735 2 MILLIGRAMS NEEDED FOUR ORAL 03/27/2022 09:36 Oral Tablet TIMES A DAY Prescription Detail TAKE 2 MILLIGRAMS ORAL NE EDED FOUR TIMES A DAY Prochlorperazine 5MG 82092658741 5 MILLIGRAMS NEEDED ORAL 03/27/2022 Oral Tablet 09:36 Prescription Detail TAKE 5 MILLIGRAMS ORAL NE EDED traZODone hydrochloride 966840 150 MILLIGRAMS BEDTIME ORAL 03/27/2022 09:36 100MG Oral Tablet Prescription Detail TAKE 150 MILLIGRAMS ORAL BED TIME busPIRone HCl 15MG 380525 15 MILLIGRAMS TWICE A DAY ORAL 03/27/2022 09:35 Oral Tablet Prescription Detail TAKE 15 MILLIGRAMS ORAL TWIC E A DAY LORazepam 2MG Oral 022330 2 MILLIGRAMS NEEDED EVERY ORAL 03/27/2022 09:35 Tablet 6 HOURS Prescription Detail TAKE 2 MILLIGRAMS ORAL NE EDED EVERY 6 HOURS Rosuvastatin 10MG Oral 324479 10 MILLIGRAMS BEDTIME ORAL 03/27/2022 09:35 Tablet Prescription Detail TAKE 10 MILLIGRAMS ORAL BEDT ABHISHEK Rybelsus 3MG Oral Tablet 6654739 3 MILLIGRAMS DAILY ORAL 03/27/2022 09:35 Prescription Detail TAKE 3 MILLIGRAMS ORAL DAILY Medications Administered During Visit Unknown or Not Available. Encounters Unknown or Not Available. Social History Smoking Status Code Start Date End Date Current every day smoker [id number] 1980 Patient Decision Aids Unknown or Not Available. Discharge Instructions You were admitted to [facility] on 04/03/2022 13:29 You were discharged from [facility] on 04/03/2022 00:00 Should you have any questions prior to [...]
--- OUTSIDE RECORDS SUMMARY | 2022-04-05 16:01 | XMS_ITS | CCD ---
:1965 Author Care Team Providers Name Role Phone CHUY RAJPUT Attending Physician Unavailable Vital Signs Unknown or Not Available. Allergies Allergy Code Allergy Type Reaction Status DOXYCYCLINE 3640 Drug allergy Active ANTIBIOTICS {Clinical monitoring unavailable} 0 Drug all ergy UNK Active TETRACYCLINE 07010 Drug allergy Active ERYTHROMYCIN 4053 Drug allergy Active IODINE-CONTAINING 0 Drug allergy Active AMOXICILLIN 723 Drug allergy Active NITROFURANTOIN 7454 Drug allergy Active Procedures Unknown or Not Available. History of Immunizations Unknown or Not Available. Problems Problem Code Start Date Resolved Date Status UTI 38604150 Active KATERIN - acute kidney injury 54409607 Ac tive Closed fracture of left [id number] Active fibula Closed fracture of right 56263255993452421 Active talus Syncope 274076452 Active History of drug dependency 743926129 03/24/2022 R esolved History of alcohol abuse 159394255 03/24/2022 Res olved Endometriosis 630576441 03/24/2022 Resolved Obesity 026858366 03/24/2022 Resolved Tobacco dependence 35225689 03/24/2022 Resolved History of bulimia nervosa 392714865243505 03/24/2022 Resolved PTSD 10336786 03/24/2022 Resolved Depression 90105230 03/24/2022 Resolved Anxiety 73047485 03/24/2022 Resolved Results Unknown or Not Available. Active Medications Medication Code Dose Units Frequency Route Modification Start Date/Time Cephalexin 085016 500 MILLIGRAMS THREE TIMES ORAL 2021 500MG Oral A DAY 09:36 Capsule Prescription Detail TAKE 500 MILLIGRAMS ORAL THR EE TIMES A DAY cloNIDine HCl 0.1MG Oral 411026 0.4 MILLIGRAMS BEDTIME ORAL 03/27/2022 09:36 Tablet Prescription Detail TAKE 0.4 MILLIGRAMS ORAL BED TIME cloNIDine HCl 0.1MG Oral 564279 0.1 MILLIGRAMS DAILY ORAL 03/27/2022 09:36 Tablet Prescription Detail TAKE 0.1 MILLIGRAMS ORAL EVER LY Cyclobenzaprine 10MG 742635 10 MILLIGRAMS NEEDED AT ORAL 03/27/2022 09:36 Oral Tablet BEDTIME Prescription Detail TAKE 10 MILLIGRAMS ORAL N EEDED AT BEDTIME HYDROmorphone HCl 2MG 175366 2 MILLIGRAMS NEEDED FOUR ORAL 03/27/2022 09:36 Oral Tablet TIMES A DAY Prescription Detail TAKE 2 MILLIGRAMS ORAL NE EDED FOUR TIMES A DAY Prochlorperazine 5MG 10472868397 5 MILLIGRAMS NEEDED ORAL 03/27/2022 Oral Tablet 09:36 Prescription Detail TAKE 5 MILLIGRAMS ORAL NE EDED traZODone hydrochloride 473109 150 MILLIGRAMS BEDTIME ORAL 03/27/2022 09:36 100MG Oral Tablet Prescription Detail TAKE 150 MILLIGRAMS ORAL BED TIME busPIRone HCl 15MG 881741 15 MILLIGRAMS TWICE A DAY ORAL 03/27/2022 09:35 Oral Tablet Prescription Detail TAKE 15 MILLIGRAMS ORAL TWIC E A DAY LORazepam 2MG Oral 060189 2 MILLIGRAMS NEEDED EVERY ORAL 03/27/2022 09:35 Tablet 6 HOURS Prescription Detail TAKE 2 MILLIGRAMS ORAL NE EDED EVERY 6 HOURS Rosuvastatin 10MG Oral 995518 10 MILLIGRAMS BEDTIME ORAL 03/27/2022 09:35 Tablet Prescription Detail TAKE 10 MILLIGRAMS ORAL BEDT ABHISHEK Rybelsus 3MG Oral Tablet 3170188 3 MILLIGRAMS DAILY ORAL 03/27/2022 09:35 Prescription Detail TAKE 3 MILLIGRAMS ORAL DAILY Medications Administered During Visit Unknown or Not Available. Encounters Encounter Diagnosis Diagnosis Code Start Date Acute kidney failure, unspecified N179 2021 Social History Smoking Status Code Start Date End Date Current every day smoker [id number] Patient Decision Aids Unknown or Not Available. Discharge Instructions You were admitted to [facility] on 03/24/2022 12:05 with a principal diagnosis of Acute kidney failure, unspecified You were discharged from [facility] on 03/24/2022 19:59 Should you have any questions prior to [...]
== END 2022-04-05 15:58 | disposition home or self-care (01) ==
LOC: NCHCN 15:57
PROVIDERS: PCP Family Medicine; Visit Provider Family Medicine
DX: N18.9 Chronic kidney disease, unspecified (principal); N39.0 Urinary tract infection, site not specified
CPT/HCPCS: 80048; 81003; 81015

== ENCOUNTER 2022-04-12 14:57 | Outpatient (REF) | payer MEDICARE, MEDICAID, SELFPAY ==
[2022-04-12 14:35] LABS: Bilirubin Negative (Negative); Blood Small (Negative); Clarity Clear (Clear); Glucose Negative (Negative); Ketones Negative (Negative); Leukocyte Esterase Trace (Negative); Nitrite Negative (Negative); Urobilinogen 0.2 EU/dL (Up TO 0.2); pH 5.5 (5-8)
[2022-04-12 14:43] LABS: Bacteria Rare HPF (Negative); C & S Indicated? No/Sq. Contamination; Casts Negative LPF (Negative); Crystals Negative HPF (Negative); Epithelial Cells Moderate HPF (Negative); Mucus Negative (Negative); WBC 0-2 HPF (0-5)
[2022-04-12 15:15] LABS: Anion Gap 12.7 mmol/L (3-11); BUN 24 mg/dL (7-18); CO2 23.3 mmol/L (21.0-32.0); CREATININE 1.6 mg/dL (0.55-1.02); Calcium 10.1 mg/dL (8.5-10.1); Chloride 104 mmol/L (98-107); Estimated GFR 37.85 (mL/min/1.73m2); Glucose 106 mg/dL (74-106); Potassium 4.1 mmol/L (3.5-5.1); Sodium 140 mmol/L (136-145)
== END 2022-04-12 14:58 | disposition home or self-care (01) ==
LOC: NCHCN 14:57
PROVIDERS: PCP Family Medicine; Visit Provider Family Medicine
DX: N39.0 Urinary tract infection, site not specified (principal); N18.9 Chronic kidney disease, unspecified
CPT/HCPCS: 80048; 81003; 81015

== ENCOUNTER 2022-05-09 11:36 | Outpatient (REF) | payer MEDICARE, MEDICAID, SELFPAY ==
[2022-05-09 16:19] LABS: Bilirubin Negative (Negative); Blood Negative (Negative); Clarity Clear (Clear); Glucose Negative (Negative); Ketones Negative (Negative); Leukocyte Esterase Negative (Negative); Nitrite Negative (Negative); Urobilinogen 0.2 EU/dL (Up TO 0.2); pH 5.5 (5-8)
== END 2022-05-09 11:37 | disposition home or self-care (01) ==
LOC: NCHCN 11:36
PROVIDERS: PCP Family Medicine; Visit Provider Family Medicine
DX: R31.21 Asymptomatic microscopic hematuria (principal)
CPT/HCPCS: 81003

== ENCOUNTER 2022-11-03 11:27 | Outpatient (REF) | payer MEDICARE, MEDICAID, SELFPAY ==
[2022-11-03 14:43] LABS: HCT 45.1 % (36.0-46.0); HGB 15.3 g/dL (11.2-15.7); MCHC 33.9 % (32.0-36.0); MCV 94 fL (80-95); MPV 10.5 fL (8.0-11.0); Platelet Count 313 10^3/uL (130-400); RBC 4.78 10^6/uL (3.93-5.22); RDW 13.3 % (11.7-14.6); RDW-SD 46.8 fL; WBC 10.93 10^3/uL (4.4-10.8)
[2022-11-03 15:29] LABS: C-Reactive Protein 0.39 mg/dL (0.0-0.3)
[2022-11-06 20:08] LABS: Calprotectin 374 mcg/g
== END 2022-11-03 11:28 | disposition home or self-care (01) ==
LOC: LBN 11:27
PROVIDERS: PCP Family Medicine; Visit Provider Internal Medicine Gastroenterology
DX: R19.7 Diarrhea, unspecified (principal)
CPT/HCPCS: 85027; 83993; 86140

== ENCOUNTER 2022-11-14 19:07 | Outpatient (REF) | payer MEDICARE, MEDICAID, SELFPAY ==
[2022-11-14 16:21] LABS: COMMENT (LAB VIEW ONLY) 99.37 mg/dL; Microalb ug/mg Crea 50.6 ug/mg Cr
== END 2022-11-14 19:08 | disposition home or self-care (01) ==
LOC: NCHCN 19:07
PROVIDERS: PCP Family Medicine; Visit Provider Family Medicine
DX: E11.9 Type 2 diabetes mellitus without complications (principal)
CPT/HCPCS: 82043; 82570

== ENCOUNTER 2023-03-09 22:34 | Outpatient (REF) | payer MEDICARE, MEDICAID, SELFPAY ==
[2023-03-09 21:07] LABS: Bilirubin Negative (Negative); Blood Negative (Negative); Clarity Clear (Clear); Glucose Negative (Negative); Ketones Negative (Negative); Leukocyte Esterase Negative (Negative); Nitrite Negative (Negative); Urobilinogen 0.2 mg/dL (Up to 0.2); pH 5.5 (5-8)
== END 2023-03-09 22:35 | disposition home or self-care (01) ==
LOC: NCHCN 22:34
PROVIDERS: PCP Family Medicine; Visit Provider Family Medicine
DX: Z01.818 Encounter for other preprocedural examination (principal)
CPT/HCPCS: 81003

== ENCOUNTER 2023-09-04 21:42 | Outpatient (REF) | payer MEDICARE, MEDICAID, SELFPAY ==
[2023-09-04 21:59] LABS: Albumin 4.1 g/dL (3.4-5.0); Anion Gap 12.7 mmol/L (3-11); BUN 29 mg/dL (7-18); CO2 24.3 mmol/L (21.0-32.0); CREATININE 1.2 mg/dL (0.55-1.02); Calcium 9.1 mg/dL (8.5-10.1); Chloride 108 mmol/L (98-107); Estimated GFR 53.13 (mL/min/1.73m2); Glucose 115 mg/dL (74-106); PHOSPHORUS 3.1 mg/dL (2.6-4.7); Potassium 4.1 mmol/L (3.5-5.1); Sodium 145 mmol/L (136-145)
== END 2023-09-04 21:43 | disposition home or self-care (01) ==
LOC: NCHCN 21:42
PROVIDERS: Internal Medicine Nephrology; PCP Family Medicine; Visit Provider Family Medicine
DX: N18.31 Chronic kidney disease, stage 3a (principal); N20.0 Calculus of kidney
CPT/HCPCS: 80069

== ENCOUNTER 2024-01-28 15:29 | Outpatient (REF) | payer MEDICARE, MEDICAID, SELFPAY ==
[2024-01-28 15:38] LABS: Anion Gap 13.8 mmol/L (3-11); BUN 21 mg/dL (7-18); CO2 24.2 mmol/L (21.0-32.0); CREATININE 1.6 mg/dL (0.55-1.02); Calcium 9.2 mg/dL (8.5-10.1); Calculated LDL 104 mg/dL (<100); Chloride 106 mmol/L (98-107); Cholesterol 181 mg/dL (<200); Estimated GFR 37.38 (mL/min/1.73m2); Glucose 115 mg/dL (74-106); HDL Cholesterol 40 mg/dL (40-60); Potassium 4.8 mmol/L (3.5-5.1); Sodium 144 mmol/L (136-145); Triglyceride 189 mg/dL (<150)
== END 2024-01-28 15:30 | disposition home or self-care (01) ==
LOC: NCHCN 15:29
PROVIDERS: PCP Family Medicine; Visit Provider Family Medicine
DX: N18.9 Chronic kidney disease, unspecified (principal)
CPT/HCPCS: 80048; 80061

== ENCOUNTER 2024-07-11 14:02 | Outpatient (REF) | payer MEDICARE, MEDICAID, SELFPAY ==
[2024-07-11 21:49] LABS: Anion Gap 10.9 mmol/L (3-11); BUN 28 mg/dL (7-18); CO2 25.1 mmol/L (21.0-32.0); CREATININE 1.4 mg/dL (0.55-1.02); Calcium 9.4 mg/dL (8.5-10.1); Chloride 107 mmol/L (98-107); Estimated GFR 43.88 (mL/min/1.73m2); Glucose 118 mg/dL (74-106); PHOSPHORUS 3.2 mg/dL (2.6-4.7); Potassium 4.5 mmol/L (3.5-5.1); Sodium 143 mmol/L (136-145)
[2024-07-11 22:11] LABS: COMMENT (LAB VIEW ONLY) 92.88 mg/dL
[2024-07-14 12:23] LABS: Measles IgG Antibody Positive (See Note)
== END 2024-07-11 14:03 | disposition home or self-care (01) ==
LOC: NCHCN 14:02
PROVIDERS: PCP Family Medicine; Visit Provider Family Medicine
DX: N18.32 Chronic kidney disease, stage 3b (principal); E11.8 Type 2 diabetes mellitus with unspecified complications; Z11.59 Encounter for screening for other viral diseases
CPT/HCPCS: 80048; 82043; 82570; 84100; 86765

== ENCOUNTER 2024-10-16 17:39 | Outpatient (REF) | payer MEDICARE, MEDICAID, SELFPAY ==
[2024-10-16 21:09] LABS: Anion Gap 11.4 mmol/L (3-11); BUN 25 mg/dL (7-18); CO2 23.6 mmol/L (21.0-32.0); CREATININE 1.4 mg/dL (0.55-1.02); Chloride 106 mmol/L (98-107); Estimated GFR 43.88 (mL/min/1.73m2); Glucose 97 mg/dL (74-106); Potassium 4.2 mmol/L (3.5-5.1); Sodium 141 mmol/L (136-145)
== END 2024-10-16 17:40 | disposition home or self-care (01) ==
LOC: NCHCN 17:39
PROVIDERS: PCP Family Medicine; Visit Provider Family Medicine
DX: N17.9 Acute kidney failure, unspecified (principal)
CPT/HCPCS: 80048

== ENCOUNTER 2024-10-22 20:53 | Outpatient (REF) | payer MEDICARE, MEDICAID, SELFPAY | END 2024-10-22 20:54 | disposition home or self-care (01) | LOC: LBN 20:53 | PROVIDERS: PCP Family Medicine; Visit Provider Urology | DX: Z01.818 Encounter for other preprocedural examination (principal) | CPT/HCPCS: 87086 ==

== ENCOUNTER 2024-11-24 18:05 | Outpatient (REF) | payer MEDICARE, MEDICAID, SELFPAY ==
[2024-11-24 16:07] LABS: Anion Gap 9.7 mmol/L (3-11); BUN 38 mg/dL (7-18); CO2 24.3 mmol/L (21.0-32.0); Calcium 9.8 mg/dL (8.5-10.1); Chloride 106 mmol/L (98-107); Estimated GFR 37.38 (mL/min/1.73m2); Glucose 139 mg/dL (74-106); Potassium 5.0 mmol/L (3.5-5.1); Sodium 140 mmol/L (136-145)
== END 2024-11-24 18:06 | disposition home or self-care (01) ==
LOC: NCHCN 18:05
PROVIDERS: PCP Family Medicine; Visit Provider Family Medicine
DX: N20.9 Urinary calculus, unspecified (principal)
CPT/HCPCS: 80048; 87086